=== PATIENT | female | born 1995 | race African-American/Black ===

== ENCOUNTER 2016-05-31 22:37 | Emergency (ER) | payer SELFPAY ==
[~2016-05-31] VITALS: Ht 165.1 cm; Wt 72.7 kg
[2016-05-31 22:41] VITALS: BP 130/78
[2016-05-31] MEDS ORDERED: PREN-147 PO (22:42)
== END 2016-05-31 23:37 | disposition left against medical advice (07) ==
LOC: EMS 22:41
DX: N93.9 Abnormal uterine and vaginal bleeding, unspecified (principal); Z53.21 Procedure and treatment not carried out due to patient leaving prior to being seen by health care provider